=== PATIENT | female | born 1955 | race Caucasian/White ===

== ENCOUNTER 2017-10-27 10:18 | Emergency (ER) | payer MEDICARE, OTHER ==
[2017-10-27] MEDS: IPRATROPIUM (NEB) 0.5 MG/2.5 ML AMP HHN (11:03)
[2017-10-27] MEDS: ALBUTEROL 0.083% (NEB) 2.5 MG/3 ML AMP HHN (11:03)
== END 2017-10-27 11:59 | disposition home or self-care (01) ==
LOC: FTE 10:18
DX: R05 Cough (principal); I10 Essential (primary) hypertension; Z79.4 Long term (current) use of insulin; Z79.82 Long term (current) use of aspirin
CPT/HCPCS: 71045; 94664; 99284-25

== ENCOUNTER 2017-11-05 09:40 | Inpatient (IN) | payer MEDICARE, OTHER ==
[2017-11-05 10:39] LABS: ADD UMIC YES; UR ASCORBIC ACID NEGATIVE (NEGATIVE); UR BILIRUBIN (Dip) NEGATIVE (NEGATIVE); UR BLOOD (Dip) NEGATIVE (NEGATIVE); UR CLARITY SLIGHTLY CLOUDY (CLEAR); UR COLOR YELLOW (YELLOW); UR GLUCOSE (Dip) NEGATIVE (NEGATIVE); UR KETONES (Dip) NEGATIVE (NEGATIVE); UR LEUKOCYTE ESTERASE (Dip) 2+ Leu/ul (NEGATIVE); UR MUCUS FEW /HPF (NONE SEEN); UR NITRITE (Dip) NEGATIVE (NEGATIVE); UR RBC 1 /HPF (0-5); UR SPECIFIC GRAVITY (Dip) 1.014 (1.003-1.030); UR SQUAMOUS EPITHELIAL CELL FEW /HPF (FEW); UR TOTAL PROTEIN (Dip) NEGATIVE (NEGATIVE); UR UROBILINOGEN (Dip) NEGATIVE (NEGATIVE); UR WBC 20 /HPF (0-5)
[2017-11-05 10:54] LABS: ADD MAN DIFF? NO
[2017-11-05 11:03] LABS: BASOPHIL # 0.1 10^3/ul (0.0-0.1); BASOPHILS % 0.6 % (0.0-2.0); EOSINOPHILS # 0.3 10^3/ul (0.0-0.5); EOSINOPHILS % 2.9 % (0.0-7.0); HEMOGLOBIN 11.6 g/dl (12.0-16.0); LYMPHOCYTES # 1.8 10^3/ul (0.8-2.9); LYMPHOCYTES % 16.3 % (15.0-51.0); MEAN CORPUSCULAR HEMOGLOBIN 27.6 pg (29.0-33.0); MEAN CORPUSCULAR HGB CONC 30.5 g/dl (32.0-37.0); MEAN CORPUSCULAR VOLUME 90.3 fl (82.0-101.0); MEAN PLATELET VOLUME 10.5 fl (7.4-10.4); MONOCYTE # 0.7 10^3/ul (0.3-0.9); MONOCYTES % 6.9 % (0.0-11.0); NEUTROPHIL # 7.8 10^3/ul (1.6-7.5); NEUTROPHILS % 72.6 % (39.0-77.0); PLATELET COUNT 277 10^3/UL (140-415); RED BLOOD COUNT 4.21 10^6/ul (4.20-5.40); RED CELL DISTRIBUTION WIDTH 13.4 % (11.5-14.5)
[2017-11-05 11:03] LABS: WHITE BLOOD COUNT 10.7 10^3/ul (4.8-10.8)
[2017-11-05] MEDS: CEFEPIME 2GM/50 ML (PMX) 50 ML IVPB (11:05)
[2017-11-05 11:15] LABS: ALANINE AMINOTRANSFERASE 22 IU/L (13-69); ALBUMIN 3.8 g/dl (3.3-4.9); ALBUMIN/GLOBULIN RATIO 1.18; ALKALINE PHOSPHATASE 101 IU/L (42-121); ANION GAP 16 (8-16); ASPARTATE AMINO TRANSFERASE 20 IU/L (15-46); BILIRUBIN,INDIRECT 0.8 mg/dl (0-1.1); BILIRUBIN,TOTAL 0.8 mg/dl (0.2-1.3); BLOOD UREA NITROGEN 23 mg/dl (7-20); CALCIUM 9.1 mg/dl (8.4-10.2); CARBON DIOXIDE 28 mmol/L (21-31); CHLORIDE 107 mmol/L (97-110); CREATININE 1.05 mg/dl (0.44-1.00); GLUCOSE 107 mg/dl (70-220); POTASSIUM 4.4 mmol/L (3.5-5.1); SODIUM 147 mmol/L (135-144)
[2017-11-05 11:18] LABS: INR 0.97
[2017-11-05 11:25] LABS: LACTIC ACID 1.5 mmol/L (0.5-2.0)
[2017-11-05 11:30] LABS: TROPONIN-I < 0.012 ng/ml (0.00-0.12)
[2017-11-05] MEDS ORDERED: ONDANSETRON 4 MG INJ IV (12:00)
[2017-11-05] MEDS ORDERED: ACETAMINOPHEN 325 MG TAB PO (12:00)
[2017-11-05 16:30] LABS: HEMOGLOBIN A1C 7.3 % (0-5.9)
[2017-11-05] MEDS ORDERED: GLUCOSE GEL 15 GRAM TUBE BUCCAL (16:30)
[2017-11-05] MEDS ORDERED: DEXTROSE 50% 50 ML SYRINGE IV ×2 (16:30)
[2017-11-05] MEDS ORDERED: GLUCOSE GEL 15 GRAM TUBE PO ×2 (16:30)
[2017-11-05] MEDS ORDERED: GLUCAGON 1 MG INJ IM (16:30)
[2017-11-05] MEDS: ALBUTEROL HFA 8 GM INHALER INH ×2 (17:00→20:49)
[2017-11-05] MEDS: SOD CHLORIDE 0.45% 1,000 ML IV (17:06)
[2017-11-05] MEDS: PANTOPRAZOLE (EC) 40 MG TAB PO (17:44)
[2017-11-05] MEDS: INSULIN ASPART [NOVOLOG] 3 ML PEN SC ×3 (17:51→20:57)
[2017-11-05] MEDS: CEFEPIME 1GM/50 ML (PMX) 50 ML IVPB (20:45)
[2017-11-05] MEDS: MYCOPHENOLATE (SR) 180 MG TAB PO (20:46)
[2017-11-05] MEDS: TACROLIMUS 1 MG CAP PO (20:46)
[2017-11-05] MEDS: VALSARTAN 80 MG TAB PO (20:46)
[2017-11-05] MEDS: GABAPENTIN 300 MG CAP PO (20:46)
[2017-11-05] MEDS: ATORVASTATIN 10 MG TAB PO (20:46)
[2017-11-05] MEDS ORDERED: NON-FORMULARY/PATIENT OWN MED (Simvastatin* (Zocor*) 10 MG) PO (21:00)
[2017-11-05] MEDS: INSULIN GLARGINE [LANtus] 3 ML PEN SC (21:03)
[2017-11-06] MEDS: ALBUTEROL HFA 8 GM INHALER INH ×6 (01:00→21:12)
[2017-11-06] MEDS: ACCU-CHEK XX (01:21)
[2017-11-06 05:12] LABS: ADD MAN DIFF? NO
[2017-11-06 05:14] LABS: WHITE BLOOD COUNT 9.4 10^3/ul (4.8-10.8)
[2017-11-06 05:14] LABS: BASOPHIL # 0.1 10^3/ul (0.0-0.1); BASOPHILS % 0.7 % (0.0-2.0); EOSINOPHILS # 0.3 10^3/ul (0.0-0.5); EOSINOPHILS % 3.1 % (0.0-7.0); HEMATOCRIT 35.7 % (37.0-47.0); HEMOGLOBIN 10.8 g/dl (12.0-16.0); LYMPHOCYTES # 2.3 10^3/ul (0.8-2.9); LYMPHOCYTES % 24.6 % (15.0-51.0); MEAN CORPUSCULAR HEMOGLOBIN 27.1 pg (29.0-33.0); MEAN CORPUSCULAR HGB CONC 30.3 g/dl (32.0-37.0); MEAN CORPUSCULAR VOLUME 89.5 fl (82.0-101.0); MEAN PLATELET VOLUME 10.9 fl (7.4-10.4); MONOCYTE # 0.8 10^3/ul (0.3-0.9); MONOCYTES % 8.7 % (0.0-11.0); NEUTROPHIL # 5.8 10^3/ul (1.6-7.5); PLATELET COUNT 242 10^3/UL (140-415); RED BLOOD COUNT 3.99 10^6/ul (4.20-5.40); RED CELL DISTRIBUTION WIDTH 13.6 % (11.5-14.5)
[2017-11-06 05:45] LABS: ANION GAP 14 (8-16); BLOOD UREA NITROGEN 26 mg/dl (7-20); CARBON DIOXIDE 30 mmol/L (21-31); CHLORIDE 102 mmol/L (97-110); CREATININE 1.28 mg/dl (0.44-1.00); GLUCOSE 182 mg/dl (70-220); POTASSIUM 3.8 mmol/L (3.5-5.1); SODIUM 142 mmol/L (135-144)
[2017-11-06] MEDS: PANTOPRAZOLE (EC) 40 MG TAB PO ×2 (05:45→17:49)
[2017-11-06] MEDS: INSULIN ASPART [NOVOLOG] 3 ML PEN SC ×7 (07:50→21:00)
[2017-11-06] MEDS: GABAPENTIN 300 MG CAP PO ×2 (08:50→21:00)
[2017-11-06] MEDS: VALSARTAN 80 MG TAB PO ×3 (08:50→21:01)
[2017-11-06] MEDS: DOCUSATE SODIUM 250 MG CAP PO (08:50)
[2017-11-06] MEDS: TACROLIMUS 1 MG CAP PO ×2 (08:50→21:00)
[2017-11-06] MEDS: predniSONE 2.5 MG TAB PO (08:50)
[2017-11-06] MEDS: LINAGLIPTIN 5 MG TABLET PO (08:50)
[2017-11-06] MEDS: MYCOPHENOLATE (SR) 180 MG TAB PO ×2 (08:50→21:00)
[2017-11-06] MEDS: ASPIRIN (EC) 81 MG TAB PO (08:51)
[2017-11-06] MEDS ORDERED: NON-FORMULARY/PATIENT OWN MED (Sitagliptin* (Januvia*) 50 MG) PO (09:00)
[2017-11-06] MEDS: CEFEPIME 1GM/50 ML (PMX) 50 ML IVPB ×2 (09:00→21:00)
[2017-11-06] MEDS ORDERED: predniSONE 20 MG TAB PO (09:00)
[2017-11-06] MEDS: SOD CHLORIDE 0.45% 1,000 ML IV (14:20)
[2017-11-06] MEDS: ATORVASTATIN 10 MG TAB PO (21:01)
[2017-11-06] MEDS: INSULIN GLARGINE [LANtus] 3 ML PEN SC (21:12)
[2017-11-07] MEDS: ALBUTEROL HFA 8 GM INHALER INH ×6 (01:00→21:39)
[2017-11-07] MEDS: ACCU-CHEK XX (02:00)
[2017-11-07] MEDS: PANTOPRAZOLE (EC) 40 MG TAB PO ×2 (05:32→17:39)
[2017-11-07] MEDS: TACROLIMUS 1 MG CAP PO ×2 (08:59→20:34)
[2017-11-07] MEDS: MYCOPHENOLATE (SR) 180 MG TAB PO ×2 (08:59→20:34)
[2017-11-07] MEDS: ASPIRIN (EC) 81 MG TAB PO (09:00)
[2017-11-07] MEDS: VALSARTAN 80 MG TAB PO ×2 (09:00→20:44)
[2017-11-07] MEDS: LINAGLIPTIN 5 MG TABLET PO (09:00)
[2017-11-07] MEDS: GABAPENTIN 300 MG CAP PO ×2 (09:00→20:33)
[2017-11-07] MEDS: SOD CHLORIDE 0.45% 1,000 ML IV (09:00)
[2017-11-07] MEDS: DOCUSATE SODIUM 250 MG CAP PO (09:00)
[2017-11-07] MEDS: predniSONE 2.5 MG TAB PO (09:00)
[2017-11-07] MEDS: CEFEPIME 1GM/50 ML (PMX) 50 ML IVPB (09:01)
[2017-11-07] MEDS: INSULIN ASPART [NOVOLOG] 3 ML PEN SC ×7 (09:11→21:00)
[2017-11-07] MEDS: INSULIN GLARGINE [LANtus] 3 ML PEN SC (20:31)
[2017-11-07] MEDS: ATORVASTATIN 10 MG TAB PO (20:33)
[2017-11-07] MEDS: AMOXICILLIN/CLAV 500 MG TAB PO (20:34)
[2017-11-07] MEDS: ONDANSETRON 4 MG INJ IV (20:46)
[2017-11-08] MEDS: ALBUTEROL HFA 8 GM INHALER INH ×6 (00:50→23:26)
[2017-11-08] MEDS: ACCU-CHEK XX (02:00)
[2017-11-08] MEDS: SOD CHLORIDE 0.45% 1,000 ML IV ×2 (05:00→07:10)
[2017-11-08 05:13] LABS: ADD MAN DIFF? NO
[2017-11-08 05:23] LABS: BASOPHIL # 0.1 10^3/ul (0.0-0.1); BASOPHILS % 0.8 % (0.0-2.0); EOSINOPHILS # 0.3 10^3/ul (0.0-0.5); EOSINOPHILS % 4.1 % (0.0-7.0); HEMATOCRIT 36.1 % (37.0-47.0); LYMPHOCYTES # 2.2 10^3/ul (0.8-2.9); LYMPHOCYTES % 27.9 % (15.0-51.0); MEAN CORPUSCULAR HEMOGLOBIN 27.5 pg (29.0-33.0); MEAN CORPUSCULAR HGB CONC 30.5 g/dl (32.0-37.0); MEAN CORPUSCULAR VOLUME 90.3 fl (82.0-101.0); MEAN PLATELET VOLUME 11.1 fl (7.4-10.4); MONOCYTE # 0.7 10^3/ul (0.3-0.9); MONOCYTES % 8.6 % (0.0-11.0); NEUTROPHIL # 4.5 10^3/ul (1.6-7.5); PLATELET COUNT 215 10^3/UL (140-415); RED CELL DISTRIBUTION WIDTH 13.3 % (11.5-14.5)
[2017-11-08 05:23] LABS: WHITE BLOOD COUNT 7.8 10^3/ul (4.8-10.8)
[2017-11-08] MEDS: PANTOPRAZOLE (EC) 40 MG TAB PO ×2 (05:43→17:34)
[2017-11-08 06:57] LABS: ANION GAP 13 (8-16); BLOOD UREA NITROGEN 22 mg/dl (7-20); CALCIUM 9.2 mg/dl (8.4-10.2); CARBON DIOXIDE 28 mmol/L (21-31); CHLORIDE 105 mmol/L (97-110); CREATININE 1.11 mg/dl (0.44-1.00); GLUCOSE 167 mg/dl (70-220); POTASSIUM 4.2 mmol/L (3.5-5.1); SODIUM 142 mmol/L (135-144)
[2017-11-08] MEDS: predniSONE 2.5 MG TAB PO (08:44)
[2017-11-08] MEDS: DOCUSATE SODIUM 250 MG CAP PO (08:44)
[2017-11-08] MEDS: AMOXICILLIN/CLAV 500 MG TAB PO ×2 (08:44→20:36)
[2017-11-08] MEDS: TACROLIMUS 1 MG CAP PO ×2 (08:44→20:36)
[2017-11-08] MEDS: MYCOPHENOLATE (SR) 180 MG TAB PO ×2 (08:44→20:36)
[2017-11-08] MEDS: LINAGLIPTIN 5 MG TABLET PO (08:44)
[2017-11-08] MEDS: VALSARTAN 80 MG TAB PO ×2 (08:44→20:39)
[2017-11-08] MEDS: GABAPENTIN 300 MG CAP PO ×2 (08:44→20:39)
[2017-11-08] MEDS: ASPIRIN (EC) 81 MG TAB PO (08:44)
[2017-11-08] MEDS: INSULIN ASPART [NOVOLOG] 3 ML PEN SC ×7 (08:47→20:53)
[2017-11-08] MEDS: ATORVASTATIN 10 MG TAB PO (20:39)
[2017-11-08] MEDS: INSULIN GLARGINE [LANtus] 3 ML PEN SC (20:51)
[2017-11-09] MEDS: ALBUTEROL HFA 8 GM INHALER INH ×6 (01:33→21:54)
[2017-11-09] MEDS: ACCU-CHEK XX (02:20)
[2017-11-09] MEDS: PANTOPRAZOLE (EC) 40 MG TAB PO ×2 (06:04→17:47)
[2017-11-09] MEDS: predniSONE 2.5 MG TAB PO (08:43)
[2017-11-09] MEDS: VALSARTAN 80 MG TAB PO ×2 (08:43→21:51)
[2017-11-09] MEDS: GABAPENTIN 300 MG CAP PO ×2 (08:43→21:53)
[2017-11-09] MEDS: ASPIRIN (EC) 81 MG TAB PO (08:43)
[2017-11-09] MEDS: LINAGLIPTIN 5 MG TABLET PO (08:43)
[2017-11-09] MEDS: AMOXICILLIN/CLAV 500 MG TAB PO ×2 (08:44→21:53)
[2017-11-09] MEDS: DOCUSATE SODIUM 250 MG CAP PO (08:44)
[2017-11-09] MEDS: MYCOPHENOLATE (SR) 180 MG TAB PO ×2 (08:44→21:53)
[2017-11-09] MEDS: TACROLIMUS 1 MG CAP PO ×2 (08:45→21:53)
[2017-11-09] MEDS: INSULIN ASPART [NOVOLOG] 3 ML PEN SC ×7 (08:48→21:00)
[2017-11-09] MEDS: ATORVASTATIN 10 MG TAB PO (21:53)
[2017-11-09] MEDS: INSULIN GLARGINE [LANtus] 3 ML PEN SC (21:56)
[2017-11-10] MEDS: ALBUTEROL HFA 8 GM INHALER INH ×3 (02:14→20:42)
[2017-11-10] MEDS: ACCU-CHEK XX (02:16)
[2017-11-10 05:11] LABS: ADD MAN DIFF? NO
[2017-11-10 05:13] LABS: WHITE BLOOD COUNT 8.8 10^3/ul (4.8-10.8)
[2017-11-10 05:13] LABS: BASOPHIL # 0.1 10^3/ul (0.0-0.1); BASOPHILS % 0.8 % (0.0-2.0); EOSINOPHILS # 0.3 10^3/ul (0.0-0.5); EOSINOPHILS % 3.4 % (0.0-7.0); HEMATOCRIT 31.9 % (37.0-47.0); HEMOGLOBIN 9.7 g/dl (12.0-16.0); LYMPHOCYTES # 2.5 10^3/ul (0.8-2.9); LYMPHOCYTES % 27.7 % (15.0-51.0); MEAN CORPUSCULAR HEMOGLOBIN 27.9 pg (29.0-33.0); MEAN CORPUSCULAR HGB CONC 30.4 g/dl (32.0-37.0); MEAN CORPUSCULAR VOLUME 91.7 fl (82.0-101.0); MEAN PLATELET VOLUME 11.6 fl (7.4-10.4); MONOCYTE # 0.8 10^3/ul (0.3-0.9); MONOCYTES % 8.6 % (0.0-11.0); NEUTROPHIL # 5.2 10^3/ul (1.6-7.5); NEUTROPHILS % 58.9 % (39.0-77.0); PLATELET COUNT 177 10^3/UL (140-415); RED BLOOD COUNT 3.48 10^6/ul (4.20-5.40); RED CELL DISTRIBUTION WIDTH 13.7 % (11.5-14.5)
[2017-11-10 05:44] LABS: ANION GAP 13 (8-16); BLOOD UREA NITROGEN 23 mg/dl (7-20); CALCIUM 9.1 mg/dl (8.4-10.2); CARBON DIOXIDE 28 mmol/L (21-31); CHLORIDE 105 mmol/L (97-110); CREATININE 1.24 mg/dl (0.44-1.00); GLUCOSE 200 mg/dl (70-220); POTASSIUM 4.7 mmol/L (3.5-5.1); SODIUM 141 mmol/L (135-144)
[2017-11-10] MEDS: PANTOPRAZOLE (EC) 40 MG TAB PO ×2 (06:18→17:47)
[2017-11-10] MEDS: GABAPENTIN 300 MG CAP PO ×2 (09:54→20:51)
[2017-11-10] MEDS: LINAGLIPTIN 5 MG TABLET PO (09:55)
[2017-11-10] MEDS: ASPIRIN (EC) 81 MG TAB PO (09:55)
[2017-11-10] MEDS: AMOXICILLIN/CLAV 500 MG TAB PO ×2 (09:55→21:00)
[2017-11-10] MEDS: DOCUSATE SODIUM 250 MG CAP PO (09:55)
[2017-11-10] MEDS: predniSONE 2.5 MG TAB PO (09:55)
[2017-11-10] MEDS: MYCOPHENOLATE (SR) 180 MG TAB PO ×2 (09:55→20:51)
[2017-11-10] MEDS: TACROLIMUS 1 MG CAP PO ×2 (09:55→20:52)
[2017-11-10] MEDS: INSULIN ASPART [NOVOLOG] 3 ML PEN SC ×7 (10:00→20:52)
[2017-11-10] MEDS: SOD CHLORIDE 0.45% 1,000 ML IV (16:10)
[2017-11-10] MEDS: ACETAMINOPHEN 325 MG TAB PO (17:47)
[2017-11-10] MEDS: VALSARTAN 80 MG TAB PO (20:51)
[2017-11-10] MEDS: ATORVASTATIN 10 MG TAB PO (20:51)
[2017-11-10] MEDS: INSULIN GLARGINE [LANtus] 3 ML PEN SC (20:57)
[2017-11-11] MEDS: ALBUTEROL HFA 8 GM INHALER INH ×6 (00:08→20:15)
[2017-11-11] MEDS: ACCU-CHEK XX (02:38)
[2017-11-11] MEDS: PANTOPRAZOLE (EC) 40 MG TAB PO ×2 (05:14→18:06)
[2017-11-11 05:44] LABS: ANION GAP 13 (8-16); BLOOD UREA NITROGEN 23 mg/dl (7-20); CALCIUM 8.8 mg/dl (8.4-10.2); CARBON DIOXIDE 26 mmol/L (21-31); CHLORIDE 104 mmol/L (97-110); CREATININE 1.12 mg/dl (0.44-1.00); GLUCOSE 134 mg/dl (70-220); POTASSIUM 4.7 mmol/L (3.5-5.1); SODIUM 138 mmol/L (135-144)
[2017-11-11] MEDS: TACROLIMUS 1 MG CAP PO ×2 (09:10→21:39)
[2017-11-11] MEDS: AMOXICILLIN/CLAV 500 MG TAB PO (09:10)
[2017-11-11] MEDS: DOCUSATE SODIUM 250 MG CAP PO (09:10)
[2017-11-11] MEDS: ASPIRIN (EC) 81 MG TAB PO (09:10)
[2017-11-11] MEDS: predniSONE 2.5 MG TAB PO (09:11)
[2017-11-11] MEDS: MYCOPHENOLATE (SR) 180 MG TAB PO ×2 (09:11→21:39)
[2017-11-11] MEDS: GABAPENTIN 300 MG CAP PO ×2 (09:11→20:16)
[2017-11-11] MEDS: LINAGLIPTIN 5 MG TABLET PO (09:11)
[2017-11-11] MEDS: VALSARTAN 80 MG TAB PO ×2 (09:12→20:20)
[2017-11-11] MEDS: INSULIN ASPART [NOVOLOG] 3 ML PEN SC ×7 (09:14→20:20)
[2017-11-11] MEDS: SOD CHLORIDE 0.45% 1,000 ML IV (09:17)
[2017-11-11] MEDS: ATORVASTATIN 10 MG TAB PO (20:20)
[2017-11-11] MEDS: INSULIN GLARGINE [LANtus] 3 ML PEN SC (20:59)
[2017-11-12] MEDS: ALBUTEROL HFA 8 GM INHALER INH ×5 (01:00→17:36)
[2017-11-12] MEDS: SOD CHLORIDE 0.45% 1,000 ML IV (01:20)
[2017-11-12] MEDS: ACCU-CHEK XX (02:19)
[2017-11-12] MEDS: PANTOPRAZOLE (EC) 40 MG TAB PO ×2 (06:30→17:35)
[2017-11-12] MEDS: VALSARTAN 80 MG TAB PO (08:42)
[2017-11-12] MEDS: DOCUSATE SODIUM 250 MG CAP PO (08:42)
[2017-11-12] MEDS: GABAPENTIN 300 MG CAP PO (08:42)
[2017-11-12] MEDS: LINAGLIPTIN 5 MG TABLET PO (08:42)
[2017-11-12] MEDS: ASPIRIN (EC) 81 MG TAB PO (08:42)
[2017-11-12] MEDS: MYCOPHENOLATE (SR) 180 MG TAB PO (08:42)
[2017-11-12] MEDS: TACROLIMUS 1 MG CAP PO (08:42)
[2017-11-12] MEDS: INSULIN ASPART [NOVOLOG] 3 ML PEN SC ×6 (08:46→18:01)
[2017-11-12] MEDS: predniSONE 2.5 MG TAB PO (09:12)
== END 2017-11-12 19:13 | disposition home or self-care (01) | DRG 690 ==
LOC: E/R 09:40 → MS1 11:43
DX: N30.00 Acute cystitis without hematuria (principal); N17.9 Acute kidney failure, unspecified; Z94.0 Kidney transplant status; E11.9 Type 2 diabetes mellitus without complications; I10 Essential (primary) hypertension; E66.9 Obesity, unspecified; Z68.37 Body mass index [BMI] 37.0-37.9, adult; Z79.899 Other long term (current) drug therapy; E78.5 Hyperlipidemia, unspecified
CPT/HCPCS: 36415; 71045; 76775; 80048; 80053; 81001; 82962; 83036; 83605; 84484; 85025; 85610; 85730; 87040; 87086; 93005; 96374; 99285-25

== ENCOUNTER 2017-12-22 02:04 | Emergency (ER) | payer MEDICARE, OTHER ==
[2017-12-22 03:42] LABS: ADD MAN DIFF? NO
[2017-12-22] MEDS: morphine 4 MG/ML VIAL IV (03:52)
[2017-12-22] MEDS: ONDANSETRON 4 MG INJ IV (03:52)
[2017-12-22 04:09] LABS: WHITE BLOOD COUNT 10.3 10^3/ul (4.8-10.8)
[2017-12-22 04:09] LABS: BASOPHIL # 0.1 10^3/ul (0.0-0.1); BASOPHILS % 0.6 % (0.0-2.0); EOSINOPHILS # 0.2 10^3/ul (0.0-0.5); EOSINOPHILS % 1.8 % (0.0-7.0); HEMATOCRIT 34.1 % (37.0-47.0); HEMOGLOBIN 10.3 g/dl (12.0-16.0); LYMPHOCYTES # 1.9 10^3/ul (0.8-2.9); LYMPHOCYTES % 18.4 % (15.0-51.0); MEAN CORPUSCULAR HEMOGLOBIN 27.2 pg (29.0-33.0); MEAN CORPUSCULAR HGB CONC 30.2 g/dl (32.0-37.0); MEAN CORPUSCULAR VOLUME 90.2 fl (82.0-101.0); MONOCYTE # 0.8 10^3/ul (0.3-0.9); MONOCYTES % 7.7 % (0.0-11.0); NEUTROPHIL # 7.3 10^3/ul (1.6-7.5); NEUTROPHILS % 70.9 % (39.0-77.0); PLATELET COUNT 233 10^3/UL (140-415); RED BLOOD COUNT 3.78 10^6/ul (4.20-5.40)
[2017-12-22 04:10] LABS: ALANINE AMINOTRANSFERASE 21 IU/L (13-69); ALBUMIN 3.6 g/dl (3.3-4.9); ALBUMIN/GLOBULIN RATIO 1.12; ALKALINE PHOSPHATASE 108 IU/L (42-121); ANION GAP 15 (8-16); ASPARTATE AMINO TRANSFERASE 17 IU/L (15-46); BILIRUBIN,INDIRECT 0.7 mg/dl (0-1.1); BILIRUBIN,TOTAL 0.7 mg/dl (0.2-1.3); BLOOD UREA NITROGEN 37 mg/dl (7-20); CALCIUM 9.1 mg/dl (8.4-10.2); CARBON DIOXIDE 24 mmol/L (21-31); CHLORIDE 110 mmol/L (97-110); CREATININE 1.07 mg/dl (0.44-1.00); GLUCOSE 108 mg/dl (70-220); LIPASE 57 U/L (23-300); POTASSIUM 4.5 mmol/L (3.5-5.1); SODIUM 144 mmol/L (135-144); TOTAL PROTEIN 6.8 g/dl (6.1-8.1)
[2017-12-22 04:23] LABS: ADD UMIC YES; UR ASCORBIC ACID NEGATIVE (NEGATIVE); UR BACTERIA FEW /HPF (NONE SEEN); UR BILIRUBIN (Dip) NEGATIVE (NEGATIVE); UR BLOOD (Dip) NEGATIVE (NEGATIVE); UR CLARITY CLEAR (CLEAR); UR COLOR STRAW (YELLOW); UR GLUCOSE (Dip) NEGATIVE (NEGATIVE); UR KETONES (Dip) NEGATIVE (NEGATIVE); UR LEUKOCYTE ESTERASE (Dip) TRACE Leu/ul (NEGATIVE); UR NITRITE (Dip) NEGATIVE (NEGATIVE); UR RBC 1 /HPF (0-5); UR SPECIFIC GRAVITY (Dip) 1.011 (1.003-1.030); UR TOTAL PROTEIN (Dip) NEGATIVE (NEGATIVE); UR UROBILINOGEN (Dip) NEGATIVE (NEGATIVE); UR WBC 25 /HPF (0-5)
[2017-12-22] MEDS: SOD CHLORIDE 0.9% 500 ML IV (04:25)
[2017-12-22] MEDS: hydrALAzine 20 MG INJ IV (04:29)
== END 2017-12-22 07:20 | disposition home or self-care (01) ==
LOC: E/R 02:04
DX: N39.0 Urinary tract infection, site not specified (principal); I10 Essential (primary) hypertension; E11.9 Type 2 diabetes mellitus without complications; Z79.4 Long term (current) use of insulin; Z79.82 Long term (current) use of aspirin
CPT/HCPCS: 36415; 74176; 80053; 81001; 83690; 85025; 87086; 96374; 96375; 99285-25

== ENCOUNTER 2018-04-29 02:58 | Inpatient (IN) | payer MEDICARE, OTHER ==
[2018-04-29 03:45] LABS: ADD MAN DIFF? NO
[2018-04-29 04:06] LABS: INR 0.87; PROTIME 11.9 Sec (11.9-14.9); PT RATIO 0.9
[2018-04-29 04:07] LABS: PARTIAL THROMBOPLASTIN TIME 25.4 Sec (23.0-35.0)
[2018-04-29 04:07] LABS: LACTIC ACID 1.9 mmol/L (0.5-2.0)
[2018-04-29 04:08] LABS: ALANINE AMINOTRANSFERASE 43 IU/L (13-69); ALBUMIN 3.9 g/dl (3.3-4.9); ALKALINE PHOSPHATASE 120 IU/L (42-121); ANION GAP 10 (8-16); ASPARTATE AMINO TRANSFERASE 48 IU/L (15-46); BLOOD UREA NITROGEN 25 mg/dl (7-20); CALCIUM 9.2 mg/dl (8.4-10.2); CARBON DIOXIDE 29 mmol/L (21-31); CHLORIDE 106 mmol/L (97-110); GLUCOSE 163 mg/dl (70-220); POTASSIUM 4.6 mmol/L (3.5-5.1); SODIUM 140 mmol/L (135-144); TOTAL PROTEIN 6.9 g/dl (6.1-8.1); URINE BLOOD (Dip) POC 2+ (NEGATIVE); URINE GLUCOSE (Dip) POC Negative (NEGATIVE); URINE KETONES (Dip) POC Negative (NEGATIVE); URINE LEUKOCYTE EST (Dip) POC 2+ (NEGATIVE); URINE NITRITE (Dip) POC Positive (NEGATIVE); URINE TOTAL PROTEIN POC 3+ (NEGATIVE)
[2018-04-29 04:19] LABS: WHITE BLOOD COUNT 11.8 10^3/ul (4.8-10.8)
[2018-04-29 04:19] LABS: BASOPHIL # 0.1 10^3/ul (0.0-0.1); BASOPHILS % 0.4 % (0.0-2.0); EOSINOPHILS # 0.1 10^3/ul (0.0-0.5); EOSINOPHILS % 0.6 % (0.0-7.0); HEMATOCRIT 37.9 % (37.0-47.0); HEMOGLOBIN 11.2 g/dl (12.0-16.0); LYMPHOCYTES # 0.7 10^3/ul (0.8-2.9); LYMPHOCYTES % 6.3 % (15.0-51.0); MEAN CORPUSCULAR HEMOGLOBIN 27.5 pg (29.0-33.0); MEAN CORPUSCULAR HGB CONC 29.6 g/dl (32.0-37.0); MEAN CORPUSCULAR VOLUME 93.1 fl (82.0-101.0); MEAN PLATELET VOLUME 10.5 fl (7.4-10.4); MONOCYTE # 0.9 10^3/ul (0.3-0.9); MONOCYTES % 7.5 % (0.0-11.0); NEUTROPHIL # 9.9 10^3/ul (1.6-7.5); NEUTROPHILS % 84.5 % (39.0-77.0); PLATELET COUNT 220 10^3/UL (140-415); RED BLOOD COUNT 4.07 10^6/ul (4.20-5.40); RED CELL DISTRIBUTION WIDTH 13.4 % (11.5-14.5); TROPONIN-I 0.015 ng/ml (0.000-0.120)
[2018-04-29 04:24] LABS: ADD UMIC YES; UR ASCORBIC ACID NEGATIVE (NEGATIVE); UR BACTERIA FEW /HPF (NONE SEEN); UR BILIRUBIN (Dip) NEGATIVE (NEGATIVE); UR BLOOD (Dip) 1+ mg/dL (NEGATIVE); UR CLARITY CLOUDY (CLEAR); UR COLOR YELLOW (YELLOW); UR GLUCOSE (Dip) NEGATIVE (NEGATIVE); UR KETONES (Dip) NEGATIVE (NEGATIVE); UR LEUKOCYTE ESTERASE (Dip) 2+ Leu/ul (NEGATIVE); UR NITRITE (Dip) POSITIVE (NEGATIVE); UR RBC 34 /HPF (0-5); UR TOTAL PROTEIN (Dip) 2+ mg/dl (NEGATIVE); UR UROBILINOGEN (Dip) NEGATIVE (NEGATIVE); UR WBC > 182 /HPF (0-5)
[2018-04-29] MEDS: PIPER-TAZO 3.375 GM IV (PMX) 100 ML IVPB (05:04)
[2018-04-29] MEDS: ACETAMINOPHEN 325 MG TAB PO ×2 (05:05→07:47)
[2018-04-29] MEDS ORDERED: ONDANSETRON 4 MG INJ IV (06:30)
[2018-04-29] MEDS ORDERED: morphine 2 MG INJ IV (06:30)
[2018-04-29 07:29] LABS: LACTIC ACID 2.5 mmol/L (0.5-2.0)
[2018-04-29] MEDS: CEFTRIAXONE 1 GM/50 ML (PMX) 50 ML IVPB (07:47)
[2018-04-29 09:23] LABS: LACTIC ACID 1.9 mmol/L (0.5-2.0)
[2018-04-29] MEDS: SOD CHLORIDE 0.9% 1,000 ML IV ×3 (09:45→20:42)
[2018-04-29] MEDS: PANTOPRAZOLE (EC) 40 MG TAB PO ×2 (09:47→20:19)
[2018-04-29] MEDS: MYCOPHENOLATE (SR) 180 MG TAB PO ×2 (09:49→20:19)
[2018-04-29] MEDS: ASPIRIN (EC) 81 MG TAB PO (09:49)
[2018-04-29] MEDS: DOCUSATE SODIUM 250 MG CAP PO (09:50)
[2018-04-29] MEDS: predniSONE 20 MG TAB PO (09:50)
[2018-04-29] MEDS: GABAPENTIN 300 MG CAP PO ×2 (09:51→20:19)
[2018-04-29] MEDS: TACROLIMUS 1 MG CAP PO ×2 (09:51→20:19)
[2018-04-29] MEDS: LINAGLIPTIN 5 MG TABLET PO (09:51)
[2018-04-29] MEDS: LOSARTAN 50 MG TAB PO (09:54)
[2018-04-29] MEDS: INSULIN ASPART [NOVOLOG] 3 ML PEN SC ×5 (12:43→20:51)
[2018-04-29] MEDS: ATORVASTATIN 10 MG TAB PO (20:19)
[2018-04-29] MEDS: INSULIN GLARGINE [LANTus] (100 UNITS/ML) SYG SC (20:26)
[2018-04-30] MEDS: CEFTRIAXONE 1 GM/50 ML (PMX) 50 ML IVPB ×2 (05:25→20:18)
[2018-04-30] MEDS: SOD CHLORIDE 0.9% 1,000 ML IV ×2 (05:25→17:15)
[2018-04-30 07:28] LABS: ADD MAN DIFF? NO
[2018-04-30 07:30] LABS: WHITE BLOOD COUNT 16.8 10^3/ul (4.8-10.8)
[2018-04-30 07:30] LABS: BASOPHILS % 0.2 % (0.0-2.0); EOSINOPHILS % 0.1 % (0.0-7.0); HEMATOCRIT 33.3 % (37.0-47.0); HEMOGLOBIN 9.9 g/dl (12.0-16.0); LYMPHOCYTES # 1.5 10^3/ul (0.8-2.9); LYMPHOCYTES % 8.8 % (15.0-51.0); MEAN CORPUSCULAR HEMOGLOBIN 27.6 pg (29.0-33.0); MEAN CORPUSCULAR HGB CONC 29.7 g/dl (32.0-37.0); MEAN CORPUSCULAR VOLUME 92.8 fl (82.0-101.0); MEAN PLATELET VOLUME 10.5 fl (7.4-10.4); MONOCYTE # 1.2 10^3/ul (0.3-0.9); MONOCYTES % 6.8 % (0.0-11.0); NEUTROPHILS % 83.4 % (39.0-77.0); PLATELET COUNT 195 10^3/UL (140-415); RED BLOOD COUNT 3.59 10^6/ul (4.20-5.40); RED CELL DISTRIBUTION WIDTH 13.4 % (11.5-14.5)
[2018-04-30] MEDS: INSULIN ASPART [NOVOLOG] 3 ML PEN SC ×7 (07:45→20:22)
[2018-04-30 07:53] LABS: ANION GAP 13 (8-16); BLOOD UREA NITROGEN 28 mg/dl (7-20); CALCIUM 9.2 mg/dl (8.4-10.2); CARBON DIOXIDE 26 mmol/L (21-31); CHLORIDE 107 mmol/L (97-110); CREATININE 1.32 mg/dl (0.44-1.00); GLUCOSE 239 mg/dl (70-220); POTASSIUM 4.8 mmol/L (3.5-5.1); SODIUM 141 mmol/L (135-144)
[2018-04-30] MEDS: PANTOPRAZOLE (EC) 40 MG TAB PO ×2 (09:12→20:17)
[2018-04-30] MEDS: LINAGLIPTIN 5 MG TABLET PO (09:12)
[2018-04-30] MEDS: MYCOPHENOLATE (SR) 180 MG TAB PO ×2 (09:12→20:17)
[2018-04-30] MEDS: predniSONE 5 MG TAB PO (09:12)
[2018-04-30] MEDS: TACROLIMUS 1 MG CAP PO ×2 (09:12→20:17)
[2018-04-30] MEDS: ASPIRIN (EC) 81 MG TAB PO (09:12)
[2018-04-30] MEDS: GABAPENTIN 300 MG CAP PO ×2 (09:12→20:17)
[2018-04-30] MEDS: LOSARTAN 50 MG TAB PO (09:12)
[2018-04-30] MEDS: DOCUSATE SODIUM 250 MG CAP PO (09:12)
[2018-04-30] MEDS: ATORVASTATIN 10 MG TAB PO (20:17)
[2018-04-30] MEDS: INSULIN GLARGINE [LANTus] (100 UNITS/ML) SYG SC (20:22)
[2018-05-01] MEDS: SOD CHLORIDE 0.9% 1,000 ML IV (05:23)
[2018-05-01] MEDS: INSULIN ASPART [NOVOLOG] 3 ML PEN SC ×7 (08:07→20:42)
[2018-05-01] MEDS: CEFTRIAXONE 1 GM/50 ML (PMX) 50 ML IVPB (08:18)
[2018-05-01] MEDS: GABAPENTIN 300 MG CAP PO ×2 (08:18→20:22)
[2018-05-01] MEDS: LINAGLIPTIN 5 MG TABLET PO (08:19)
[2018-05-01] MEDS: predniSONE 5 MG TAB PO (08:19)
[2018-05-01] MEDS: ASPIRIN (EC) 81 MG TAB PO (08:19)
[2018-05-01] MEDS: DOCUSATE SODIUM 250 MG CAP PO (08:19)
[2018-05-01] MEDS: MYCOPHENOLATE (SR) 180 MG TAB PO ×2 (08:19→20:23)
[2018-05-01] MEDS: PANTOPRAZOLE (EC) 40 MG TAB PO ×2 (08:19→20:25)
[2018-05-01] MEDS: TACROLIMUS 1 MG CAP PO ×2 (08:19→20:23)
[2018-05-01] MEDS: LOSARTAN 50 MG TAB PO (08:20)
[2018-05-01] MEDS: SENNA TAB PO (08:31)
[2018-05-01] MEDS: DOCUSATE SODIUM 100 MG CAP PO (08:31)
[2018-05-01] MEDS ORDERED: hydrALAzine 20 MG INJ IV (12:30)
[2018-05-01 16:06] LABS: ADD MAN DIFF? NO
[2018-05-01 16:08] LABS: BASOPHIL # 0.1 10^3/ul (0.0-0.1); BASOPHILS % 0.7 % (0.0-2.0); EOSINOPHILS # 0.1 10^3/ul (0.0-0.5); EOSINOPHILS % 1.2 % (0.0-7.0); HEMATOCRIT 34.3 % (37.0-47.0); HEMOGLOBIN 10.1 g/dl (12.0-16.0); LYMPHOCYTES # 1.5 10^3/ul (0.8-2.9); LYMPHOCYTES % 14.4 % (15.0-51.0); MEAN CORPUSCULAR HEMOGLOBIN 27.4 pg (29.0-33.0); MEAN CORPUSCULAR HGB CONC 29.4 g/dl (32.0-37.0); MEAN CORPUSCULAR VOLUME 93.2 fl (82.0-101.0); MEAN PLATELET VOLUME 10.5 fl (7.4-10.4); MONOCYTE # 0.5 10^3/ul (0.3-0.9); MONOCYTES % 5.3 % (0.0-11.0); NEUTROPHIL # 7.8 10^3/ul (1.6-7.5); NEUTROPHILS % 76.8 % (39.0-77.0); PLATELET COUNT 205 10^3/UL (140-415); RED BLOOD COUNT 3.68 10^6/ul (4.20-5.40); RED CELL DISTRIBUTION WIDTH 13.5 % (11.5-14.5)
[2018-05-01 16:08] LABS: WHITE BLOOD COUNT 10.2 10^3/ul (4.8-10.8)
[2018-05-01 16:29] LABS: ANION GAP 11 (8-16); BLOOD UREA NITROGEN 20 mg/dl (7-20); CALCIUM 9.6 mg/dl (8.4-10.2); CARBON DIOXIDE 27 mmol/L (21-31); CHLORIDE 108 mmol/L (97-110); CREATININE 1.04 mg/dl (0.44-1.00); GLUCOSE 116 mg/dl (70-220); POTASSIUM 4.4 mmol/L (3.5-5.1); SODIUM 142 mmol/L (135-144)
[2018-05-01] MEDS: ATORVASTATIN 10 MG TAB PO (20:23)
[2018-05-01] MEDS: MEROPENEM 1 GM/50ML(PMX) 50 ML IVPB (20:24)
[2018-05-01] MEDS: INSULIN GLARGINE [LANTus] (100 UNITS/ML) SYG SC (20:41)
[2018-05-01] MEDS: ACETAMINOPHEN 325 MG TAB PO (23:54)
[2018-05-02 06:38] LABS: ADD MAN DIFF? NO
[2018-05-02 06:40] LABS: BASOPHIL # 0.1 10^3/ul (0.0-0.1); BASOPHILS % 0.9 % (0.0-2.0); EOSINOPHILS # 0.2 10^3/ul (0.0-0.5); EOSINOPHILS % 1.7 % (0.0-7.0); HEMATOCRIT 36.1 % (37.0-47.0); HEMOGLOBIN 10.7 g/dl (12.0-16.0); LYMPHOCYTES # 1.8 10^3/ul (0.8-2.9); LYMPHOCYTES % 20.3 % (15.0-51.0); MEAN CORPUSCULAR HEMOGLOBIN 27.3 pg (29.0-33.0); MEAN CORPUSCULAR HGB CONC 29.6 g/dl (32.0-37.0); MEAN CORPUSCULAR VOLUME 92.1 fl (82.0-101.0); MEAN PLATELET VOLUME 10.6 fl (7.4-10.4); MONOCYTE # 0.7 10^3/ul (0.3-0.9); MONOCYTES % 7.7 % (0.0-11.0); NEUTROPHILS % 67.9 % (39.0-77.0); PLATELET COUNT 224 10^3/UL (140-415); RED BLOOD COUNT 3.92 10^6/ul (4.20-5.40); RED CELL DISTRIBUTION WIDTH 13.5 % (11.5-14.5)
[2018-05-02 06:40] LABS: WHITE BLOOD COUNT 8.8 10^3/ul (4.8-10.8)
[2018-05-02 07:20] LABS: ANION GAP 11 (8-16); BLOOD UREA NITROGEN 22 mg/dl (7-20); CALCIUM 9.5 mg/dl (8.4-10.2); CARBON DIOXIDE 26 mmol/L (21-31); CHLORIDE 108 mmol/L (97-110); CREATININE 1.14 mg/dl (0.44-1.00); GLUCOSE 177 mg/dl (70-220); POTASSIUM 4.2 mmol/L (3.5-5.1); SODIUM 141 mmol/L (135-144)
[2018-05-02] MEDS: INSULIN ASPART [NOVOLOG] 3 ML PEN SC ×7 (08:07→20:57)
[2018-05-02] MEDS: DOCUSATE SODIUM 250 MG CAP PO (08:23)
[2018-05-02] MEDS: LINAGLIPTIN 5 MG TABLET PO (08:23)
[2018-05-02] MEDS: SENNA TAB PO (08:23)
[2018-05-02] MEDS: TACROLIMUS 1 MG CAP PO ×2 (08:24→20:53)
[2018-05-02] MEDS: predniSONE 5 MG TAB PO (08:24)
[2018-05-02] MEDS: MYCOPHENOLATE (SR) 180 MG TAB PO ×2 (08:24→20:53)
[2018-05-02] MEDS: ASPIRIN (EC) 81 MG TAB PO (08:24)
[2018-05-02] MEDS: PANTOPRAZOLE (EC) 40 MG TAB PO ×2 (08:24→20:53)
[2018-05-02] MEDS: DOCUSATE SODIUM 100 MG CAP PO (08:24)
[2018-05-02] MEDS: LOSARTAN 50 MG TAB PO (08:24)
[2018-05-02] MEDS: GABAPENTIN 300 MG CAP PO ×2 (08:24→20:53)
[2018-05-02] MEDS: MEROPENEM 1 GM/50ML(PMX) 50 ML IVPB ×2 (08:25→20:54)
[2018-05-02] MEDS: ATORVASTATIN 10 MG TAB PO (20:54)
[2018-05-02] MEDS: INSULIN GLARGINE [LANTus] (100 UNITS/ML) SYG SC (20:57)
[2018-05-02] MEDS ORDERED: NON-FORMULARY/PATIENT OWN MED (Valsartan* (Diovan*) 80 MG) PO (21:00)
[2018-05-03] MEDS: ACETAMINOPHEN 325 MG TAB PO (01:42)
[2018-05-03 06:08] LABS: ADD MAN DIFF? NO
[2018-05-03 06:14] LABS: BASOPHIL # 0.1 10^3/ul (0.0-0.1); EOSINOPHILS # 0.2 10^3/ul (0.0-0.5); EOSINOPHILS % 2.1 % (0.0-7.0); HEMOGLOBIN 11.1 g/dl (12.0-16.0); LYMPHOCYTES % 25.5 % (15.0-51.0); MEAN CORPUSCULAR HEMOGLOBIN 27.2 pg (29.0-33.0); MEAN CORPUSCULAR VOLUME 90.7 fl (82.0-101.0); MEAN PLATELET VOLUME 10.1 fl (7.4-10.4); MONOCYTE # 0.6 10^3/ul (0.3-0.9); MONOCYTES % 7.5 % (0.0-11.0); NEUTROPHILS % 62.3 % (39.0-77.0); PLATELET COUNT 245 10^3/UL (140-415); RED BLOOD COUNT 4.08 10^6/ul (4.20-5.40); RED CELL DISTRIBUTION WIDTH 13.2 % (11.5-14.5)
[2018-05-03] MEDS: BISACODYL 10 MG SUPP PR (06:15)
[2018-05-03 06:51] LABS: ANION GAP 12 (8-16); BLOOD UREA NITROGEN 26 mg/dl (7-20); CALCIUM 9.6 mg/dl (8.4-10.2); CARBON DIOXIDE 27 mmol/L (21-31); CHLORIDE 108 mmol/L (97-110); CREATININE 1.09 mg/dl (0.44-1.00); GLUCOSE 64 mg/dl (70-220); SODIUM 143 mmol/L (135-144)
[2018-05-03] MEDS: INSULIN ASPART [NOVOLOG] 3 ML PEN SC ×7 (08:28→21:00)
[2018-05-03] MEDS: SENNA TAB PO (09:14)
[2018-05-03] MEDS: MEROPENEM 1 GM/50ML(PMX) 50 ML IVPB ×2 (09:14→22:25)
[2018-05-03] MEDS: predniSONE 5 MG TAB PO (09:15)
[2018-05-03] MEDS: TACROLIMUS 1 MG CAP PO ×2 (09:15→21:37)
[2018-05-03] MEDS: PANTOPRAZOLE (EC) 40 MG TAB PO ×2 (09:15→20:45)
[2018-05-03] MEDS: DOCUSATE SODIUM 250 MG CAP PO (09:15)
[2018-05-03] MEDS: DOCUSATE SODIUM 100 MG CAP PO (09:15)
[2018-05-03] MEDS: MYCOPHENOLATE (SR) 180 MG TAB PO ×2 (09:15→21:37)
[2018-05-03] MEDS: GABAPENTIN 300 MG CAP PO ×2 (09:15→20:48)
[2018-05-03] MEDS: LINAGLIPTIN 5 MG TABLET PO (09:15)
[2018-05-03] MEDS: ASPIRIN (EC) 81 MG TAB PO (09:15)
[2018-05-03] MEDS: LOSARTAN 50 MG TAB PO (09:16)
[2018-05-03] MEDS: ATORVASTATIN 10 MG TAB PO (20:45)
[2018-05-03] MEDS: INSULIN GLARGINE [LANTus] (100 UNITS/ML) SYG SC (21:38)
[2018-05-04 06:55] LABS: ADD MAN DIFF? NO
[2018-05-04 07:05] LABS: WHITE BLOOD COUNT 9.5 10^3/ul (4.8-10.8)
[2018-05-04 07:05] LABS: BASOPHIL # 0.1 10^3/ul (0.0-0.1); BASOPHILS % 0.8 % (0.0-2.0); EOSINOPHILS # 0.3 10^3/ul (0.0-0.5); EOSINOPHILS % 2.6 % (0.0-7.0); HEMOGLOBIN 10.5 g/dl (12.0-16.0); LYMPHOCYTES # 2.2 10^3/ul (0.8-2.9); LYMPHOCYTES % 23.3 % (15.0-51.0); MEAN CORPUSCULAR HEMOGLOBIN 27.1 pg (29.0-33.0); MEAN CORPUSCULAR HGB CONC 29.2 g/dl (32.0-37.0); MEAN CORPUSCULAR VOLUME 92.8 fl (82.0-101.0); MEAN PLATELET VOLUME 10.5 fl (7.4-10.4); MONOCYTE # 0.8 10^3/ul (0.3-0.9); MONOCYTES % 8.3 % (0.0-11.0); NEUTROPHILS % 63.6 % (39.0-77.0); PLATELET COUNT 241 10^3/UL (140-415); RED BLOOD COUNT 3.88 10^6/ul (4.20-5.40); RED CELL DISTRIBUTION WIDTH 13.2 % (11.5-14.5)
[2018-05-04 07:52] LABS: ANION GAP 14 (8-16); BLOOD UREA NITROGEN 29 mg/dl (7-20); CALCIUM 9.6 mg/dl (8.4-10.2); CARBON DIOXIDE 26 mmol/L (21-31); CHLORIDE 107 mmol/L (97-110); CREATININE 1.31 mg/dl (0.44-1.00); GLUCOSE 123 mg/dl (70-220); POTASSIUM 4.5 mmol/L (3.5-5.1); SODIUM 142 mmol/L (135-144)
[2018-05-04] MEDS: INSULIN ASPART [NOVOLOG] 3 ML PEN SC ×7 (08:00→20:45)
[2018-05-04] MEDS: ASPIRIN (EC) 81 MG TAB PO (08:42)
[2018-05-04] MEDS: TACROLIMUS 1 MG CAP PO ×2 (08:42→20:46)
[2018-05-04] MEDS: PANTOPRAZOLE (EC) 40 MG TAB PO ×2 (08:42→20:46)
[2018-05-04] MEDS: GABAPENTIN 300 MG CAP PO ×2 (08:42→20:46)
[2018-05-04] MEDS: DOCUSATE SODIUM 100 MG CAP PO (08:42)
[2018-05-04] MEDS: MYCOPHENOLATE (SR) 180 MG TAB PO ×2 (08:42→20:45)
[2018-05-04] MEDS: DOCUSATE SODIUM 250 MG CAP PO (08:42)
[2018-05-04] MEDS: SENNA TAB PO (08:42)
[2018-05-04] MEDS: predniSONE 5 MG TAB PO (08:42)
[2018-05-04] MEDS: LINAGLIPTIN 5 MG TABLET PO (08:42)
[2018-05-04] MEDS: LOSARTAN 50 MG TAB PO (08:44)
[2018-05-04] MEDS: MEROPENEM 1 GM/50ML(PMX) 50 ML IVPB ×2 (08:49→20:36)
[2018-05-04] MEDS: LIDOCAINE 1% (MPF) 5 ML VIAL SC (16:30)
[2018-05-04] MEDS: INSULIN GLARGINE [LANTus] (100 UNITS/ML) SYG SC (20:37)
[2018-05-04] MEDS: ATORVASTATIN 10 MG TAB PO (20:46)
[2018-05-05 06:22] LABS: ADD MAN DIFF? NO
[2018-05-05 06:34] LABS: BASOPHIL # 0.1 10^3/ul (0.0-0.1); BASOPHILS % 1.2 % (0.0-2.0); EOSINOPHILS # 0.4 10^3/ul (0.0-0.5); HEMOGLOBIN 10.5 g/dl (12.0-16.0); LYMPHOCYTES # 2.3 10^3/ul (0.8-2.9); LYMPHOCYTES % 24.5 % (15.0-51.0); MEAN CORPUSCULAR HEMOGLOBIN 27.3 pg (29.0-33.0); MEAN CORPUSCULAR VOLUME 91.1 fl (82.0-101.0); MEAN PLATELET VOLUME 10.7 fl (7.4-10.4); MONOCYTE # 0.7 10^3/ul (0.3-0.9); MONOCYTES % 7.6 % (0.0-11.0); NEUTROPHIL # 5.5 10^3/ul (1.6-7.5); NEUTROPHILS % 59.2 % (39.0-77.0); PLATELET COUNT 220 10^3/UL (140-415); RED BLOOD COUNT 3.84 10^6/ul (4.20-5.40); RED CELL DISTRIBUTION WIDTH 13.2 % (11.5-14.5)
[2018-05-05 06:34] LABS: WHITE BLOOD COUNT 9.4 10^3/ul (4.8-10.8)
[2018-05-05 07:03] LABS: ANION GAP 13 (8-16); BLOOD UREA NITROGEN 29 mg/dl (7-20); CALCIUM 9.7 mg/dl (8.4-10.2); CARBON DIOXIDE 28 mmol/L (21-31); CHLORIDE 104 mmol/L (97-110); CREATININE 1.26 mg/dl (0.44-1.00); GLUCOSE 223 mg/dl (70-220); POTASSIUM 4.6 mmol/L (3.5-5.1); SODIUM 140 mmol/L (135-144)
[2018-05-05] MEDS: INSULIN ASPART [NOVOLOG] 3 ML PEN SC ×7 (08:31→20:52)
[2018-05-05] MEDS: predniSONE 5 MG TAB PO (08:35)
[2018-05-05] MEDS: PANTOPRAZOLE (EC) 40 MG TAB PO ×2 (08:35→20:40)
[2018-05-05] MEDS: ASPIRIN (EC) 81 MG TAB PO (08:35)
[2018-05-05] MEDS: LINAGLIPTIN 5 MG TABLET PO (08:35)
[2018-05-05] MEDS: SENNA TAB PO (08:35)
[2018-05-05] MEDS: GABAPENTIN 300 MG CAP PO ×2 (08:35→20:41)
[2018-05-05] MEDS: LOSARTAN 50 MG TAB PO (08:36)
[2018-05-05] MEDS: DOCUSATE SODIUM 100 MG CAP PO (08:36)
[2018-05-05] MEDS: TACROLIMUS 1 MG CAP PO ×2 (08:36→20:41)
[2018-05-05] MEDS: MYCOPHENOLATE (SR) 180 MG TAB PO ×2 (08:37→20:41)
[2018-05-05] MEDS: MEROPENEM 1 GM/50ML(PMX) 50 ML IVPB ×2 (09:43→20:40)
[2018-05-05] MEDS: LIDOCAINE 1% (MPF) 5 ML VIAL SC (12:37)
[2018-05-05] MEDS: SOD CHLORIDE 0.9% 100 ML (12:50)
[2018-05-05] MEDS: ATORVASTATIN 10 MG TAB PO (20:41)
[2018-05-05] MEDS: INSULIN GLARGINE [LANTus] (100 UNITS/ML) SYG SC (20:52)
== END 2018-05-05 22:40 | disposition home health service (06) | DRG 872 ==
LOC: PP2 05-03 16:30 → E/R 02:58 → TEL 04:30
DX: A41.51 Sepsis due to Escherichia coli [E. coli] (principal); N10 Acute pyelonephritis; N17.9 Acute kidney failure, unspecified; Z68.41 Body mass index [BMI] 40.0-44.9, adult; Z94.0 Kidney transplant status; Z16.12 Extended spectrum beta lactamase (ESBL) resistance; E66.01 Morbid (severe) obesity due to excess calories; E11.9 Type 2 diabetes mellitus without complications; E78.00 Pure hypercholesterolemia, unspecified; I10 Essential (primary) hypertension; K21.9 Gastro-esophageal reflux disease without esophagitis; Z79.4 Long term (current) use of insulin; Z87.891 Personal history of nicotine dependence; Z79.82 Long term (current) use of aspirin; Z90.49 Acquired absence of other specified parts of digestive tract; D89.9 Disorder involving the immune mechanism, unspecified
CPT/HCPCS: 36415; 36569; 71045; 76937; 80048; 80053; 81001; 81003; 82962; 83605; 84484; 85025; 85610; 85730; 87040; 87086; 93005; 99285-25

== ENCOUNTER 2019-01-12 08:37 | Emergency (ER) | payer MEDICARE, OTHER ==
[2019-01-12] MEDS: DEXAMETHASONE 10 MG/ML 1 ML INJ IM (09:07)
[2019-01-12] MEDS: ALBUTEROL 0.083% (NEB) 2.5 MG/3 ML AMP HHN (09:16)
[2019-01-12] MEDS: IPRATROPIUM (NEB) 0.5 MG/2.5 ML AMP HHN (09:16)
== END 2019-01-12 10:53 | disposition home or self-care (01) ==
LOC: FTE 08:37
DX: R05 Cough (principal); I10 Essential (primary) hypertension; E11.9 Type 2 diabetes mellitus without complications; Z79.82 Long term (current) use of aspirin; Z79.4 Long term (current) use of insulin
CPT/HCPCS: 71045; 94664; 96372; 99284-25

== ENCOUNTER 2019-01-15 00:58 | Emergency (ER) | payer MEDICARE, OTHER ==
[2019-01-15] MEDS: IPRATROPIUM (NEB) 0.5 MG/2.5 ML AMP INH ×2 (01:51→03:12)
[2019-01-15] MEDS: ALBUTEROL 0.5% (NEB) 2.5 MG/0.5 ML AMP INH ×2 (01:51→03:12)
[2019-01-15 02:39] LABS: ADD MAN DIFF? NO
[2019-01-15] MEDS: KETOROLAC 15 MG INJ IV (02:39)
[2019-01-15] MEDS: SOD CHLORIDE 0.9% 500 ML IV (02:39)
[2019-01-15 02:42] LABS: WHITE BLOOD COUNT 12.3 10^3/ul (4.8-10.8)
[2019-01-15 02:43] LABS: BASOPHIL # 0.1 10^3/ul (0.0-0.1); BASOPHILS % 0.8 % (0.0-2.0); EOSINOPHILS # 0.4 10^3/ul (0.0-0.5); EOSINOPHILS % 3.4 % (0.0-7.0); HEMATOCRIT 36.9 % (37.0-47.0); HEMOGLOBIN 10.7 g/dl (12.0-16.0); LYMPHOCYTES # 2.3 10^3/ul (0.8-2.9); LYMPHOCYTES % 18.4 % (15.0-51.0); MEAN CORPUSCULAR VOLUME 93.2 fl (82.0-101.0); MEAN PLATELET VOLUME 10.8 fl (7.4-10.4); MONOCYTES % 8.3 % (0.0-11.0); NEUTROPHIL # 8.4 10^3/ul (1.6-7.5); PLATELET COUNT 215 10^3/UL (140-415); RED BLOOD COUNT 3.96 10^6/ul (4.20-5.40); RED CELL DISTRIBUTION WIDTH 13.6 % (11.5-14.5)
[2019-01-15 03:03] LABS: ANION GAP 7 (5-13); BLOOD UREA NITROGEN 35 mg/dl (7-20); CALCIUM 8.5 mg/dl (8.4-10.2); CARBON DIOXIDE 28 mmol/L (21-31); CHLORIDE 108 mmol/L (97-110); Estimated GFR 35 mL/min (>60); GLUCOSE 110 mg/dl (70-220); POTASSIUM 4.4 mmol/L (3.5-5.1); SODIUM 143 mmol/L (135-144)
[2019-01-15] MEDS: DEXAMETHASONE 10 MG/ML 1 ML INJ IV (03:15)
== END 2019-01-15 04:24 | disposition home or self-care (01) ==
LOC: E/R 00:58
DX: J20.9 Acute bronchitis, unspecified (principal); I10 Essential (primary) hypertension; E11.9 Type 2 diabetes mellitus without complications; Z79.4 Long term (current) use of insulin; Z79.82 Long term (current) use of aspirin
CPT/HCPCS: 36415; 71045; 80048; 85025; 93005; 94644; 94645; 96374; 96375; 99285-25

== ENCOUNTER 2019-02-23 11:52 | Inpatient (IN) | payer MEDICARE, OTHER ==
[2019-02-23 12:50] LABS: ADD MAN DIFF? NO
[2019-02-23] MEDS: ONDANSETRON 4 MG INJ IV (12:52)
[2019-02-23] MEDS: SOD CHLORIDE 0.9% 1,000 ML IV (12:52)
[2019-02-23 12:54] LABS: ABNORMAL IP MESSAGE 1; BASOPHIL # 0.1 10^3/ul (0.0-0.1); EOSINOPHILS # 0.1 10^3/ul (0.0-0.5); EOSINOPHILS % 0.9 % (0.0-7.0); HEMATOCRIT 36.9 % (37.0-47.0); HEMOGLOBIN 10.6 g/dl (12.0-16.0); LYMPHOCYTES # 1.9 10^3/ul (0.8-2.9); MEAN CORPUSCULAR HEMOGLOBIN 26.8 pg (29.0-33.0); MEAN CORPUSCULAR HGB CONC 28.7 g/dl (32.0-37.0); MEAN CORPUSCULAR VOLUME 93.2 fl (82.0-101.0); MEAN PLATELET VOLUME 10.4 fl (7.4-10.4); MONOCYTE # 0.8 10^3/ul (0.3-0.9); MONOCYTES % 8.7 % (0.0-11.0); NEUTROPHIL # 6.1 10^3/ul (1.6-7.5); NEUTROPHILS % 67.6 % (39.0-77.0); PLATELET COUNT 206 10^3/UL (140-415); RED BLOOD COUNT 3.96 10^6/ul (4.20-5.40); RED CELL DISTRIBUTION WIDTH 14.1 % (11.5-14.5)
[2019-02-23 12:54] LABS: WHITE BLOOD COUNT 9.1 10^3/ul (4.8-10.8)
[2019-02-23 13:01] LABS: POSITIVE DIFF @See below
[2019-02-23 13:03] LABS: ADD UMIC YES; UR ASCORBIC ACID NEGATIVE (NEGATIVE); UR BACTERIA FEW /HPF (NONE SEEN); UR BILIRUBIN (Dip) NEGATIVE (NEGATIVE); UR BLOOD (Dip) 1+ mg/dL (NEGATIVE); UR CLARITY CLOUDY (CLEAR); UR COLOR YELLOW (YELLOW); UR GLUCOSE (Dip) NEGATIVE (NEGATIVE); UR KETONES (Dip) NEGATIVE (NEGATIVE); UR LEUKOCYTE ESTERASE (Dip) 3+ Leu/ul (NEGATIVE); UR NITRITE (Dip) NEGATIVE (NEGATIVE); UR RBC 12 /HPF (0-5); UR SQUAMOUS EPITHELIAL CELL FEW /HPF (FEW); UR TOTAL PROTEIN (Dip) 2+ mg/dl (NEGATIVE); UR UROBILINOGEN (Dip) NEGATIVE (NEGATIVE); UR WBC > 182 /HPF (0-5)
[2019-02-23 13:11] LABS: ALANINE AMINOTRANSFERASE 18 IU/L (13-69); ALBUMIN 3.6 g/dl (3.3-4.9); ALBUMIN/GLOBULIN RATIO 1.16; ALKALINE PHOSPHATASE 113 IU/L (42-121); ANION GAP 5 (5-13); ASPARTATE AMINO TRANSFERASE 19 IU/L (15-46); BILIRUBIN,INDIRECT 1.2 mg/dl (0-1.1); BILIRUBIN,TOTAL 1.2 mg/dl (0.2-1.3); BLOOD UREA NITROGEN 18 mg/dl (7-20); CALCIUM 9.3 mg/dl (8.4-10.2); CARBON DIOXIDE 30 mmol/L (21-31); CHLORIDE 106 mmol/L (97-110); CREATININE 1.21 mg/dl (0.44-1.00); Estimated GFR 45 mL/min (>60); GLUCOSE 241 mg/dl (70-220); LIPASE 66 U/L (23-300); POTASSIUM 4.6 mmol/L (3.5-5.1); SODIUM 141 mmol/L (135-144); TOTAL PROTEIN 6.7 g/dl (6.1-8.1)
[2019-02-23 13:23] LABS: TROPONIN-I < 0.012 ng/ml (0.000-0.120)
[2019-02-23] MEDS: CEFTRIAXONE 1 GM/50 ML (PMX) 50 ML IVPB (13:55)
[2019-02-23] MEDS ORDERED: ACETAMINOPHEN 325 MG TAB PO ×2 (16:00→17:30)
[2019-02-23] MEDS ORDERED: ONDANSETRON 4 MG INJ IV ×2 (16:00→17:30)
[2019-02-23] MEDS ORDERED: HYDROCODONE/APAP (5/325) TAB PO (17:30)
[2019-02-23] MEDS ORDERED: DOCUSATE SODIUM 100 MG CAP PO (17:30)
[2019-02-23] MEDS ORDERED: ZOLPIDEM 5 MG TAB PO (17:30)
[2019-02-23] MEDS: INSULIN ASPART [NOVOLOG] 3 ML PEN SC ×3 (18:59→21:44)
[2019-02-23] MEDS ORDERED: NON-FORMULARY/PATIENT OWN MED (Simvastatin* (Zocor*) 20 MG) PO (20:20)
[2019-02-23] MEDS ORDERED: NON-FORMULARY/PATIENT OWN MED (Valsartan* (Diovan*) 80 MG) PO (20:20)
[2019-02-23] MEDS: TACROLIMUS 1 MG CAP PO ×2 (21:00→23:27)
[2019-02-23] MEDS: MEROPENEM 1 GM/50ML(PMX) 50 ML IVPB (21:19)
[2019-02-23] MEDS: GABAPENTIN 100 MG CAP PO (21:23)
[2019-02-23] MEDS: INSULIN GLARGINE [LANTus] (100 UNITS/ML) SYG SC (21:35)
[2019-02-23] MEDS: ATORVASTATIN 10 MG TAB PO (23:27)
[2019-02-23] MEDS: APIXABAN 5 MG TABLET PO (23:28)
[2019-02-23] MEDS: MYCOPHENOLATE (SR) 180 MG TAB PO (23:31)
[2019-02-24] MEDS: ACCU-CHEK XX (02:00)
[2019-02-24 05:28] LABS: ADD MAN DIFF? NO
[2019-02-24 05:31] LABS: BASOPHIL # 0.1 10^3/ul (0.0-0.1); EOSINOPHILS # 0.1 10^3/ul (0.0-0.5); EOSINOPHILS % 1.4 % (0.0-7.0); HEMATOCRIT 32.5 % (37.0-47.0); HEMOGLOBIN 9.7 g/dl (12.0-16.0); LYMPHOCYTES # 2.1 10^3/ul (0.8-2.9); LYMPHOCYTES % 28.9 % (15.0-51.0); MEAN CORPUSCULAR HEMOGLOBIN 27.3 pg (29.0-33.0); MEAN CORPUSCULAR HGB CONC 29.8 g/dl (32.0-37.0); MEAN CORPUSCULAR VOLUME 91.5 fl (82.0-101.0); MEAN PLATELET VOLUME 10.9 fl (7.4-10.4); MONOCYTE # 0.6 10^3/ul (0.3-0.9); MONOCYTES % 8.3 % (0.0-11.0); NEUTROPHIL # 4.3 10^3/ul (1.6-7.5); PLATELET COUNT 188 10^3/UL (140-415); RED BLOOD COUNT 3.55 10^6/ul (4.20-5.40); RED CELL DISTRIBUTION WIDTH 14.1 % (11.5-14.5)
[2019-02-24 05:31] LABS: WHITE BLOOD COUNT 7.2 10^3/ul (4.8-10.8)
[2019-02-24 06:25] LABS: ANION GAP 4 (5-13); BLOOD UREA NITROGEN 18 mg/dl (7-20); CALCIUM 9.2 mg/dl (8.4-10.2); CARBON DIOXIDE 29 mmol/L (21-31); CHLORIDE 106 mmol/L (97-110); CREATININE 1.12 mg/dl (0.44-1.00); Estimated GFR 49 mL/min (>60); GLUCOSE 202 mg/dl (70-220); POTASSIUM 4.6 mmol/L (3.5-5.1); SODIUM 139 mmol/L (135-144)
[2019-02-24] MEDS: PANTOPRAZOLE (EC) 40 MG TAB PO (06:36)
[2019-02-24] MEDS: INSULIN ASPART [NOVOLOG] 3 ML PEN SC ×8 (08:21→21:00)
[2019-02-24] MEDS: MEROPENEM 1 GM/50ML(PMX) 50 ML IVPB ×2 (08:46→21:24)
[2019-02-24] MEDS: ALLOPURINOL 100 MG TAB PO (08:47)
[2019-02-24] MEDS: FUROSEMIDE 40 MG TAB PO (08:48)
[2019-02-24] MEDS: TACROLIMUS 1 MG CAP PO ×2 (08:49→21:25)
[2019-02-24] MEDS: predniSONE 2.5 MG TAB PO (08:49)
[2019-02-24] MEDS: APIXABAN 5 MG TABLET PO ×2 (08:49→21:26)
[2019-02-24] MEDS: MYCOPHENOLATE (SR) 180 MG TAB PO ×2 (08:59→21:25)
[2019-02-24] MEDS: GABAPENTIN 100 MG CAP PO (21:25)
[2019-02-24] MEDS: ATORVASTATIN 10 MG TAB PO (21:26)
[2019-02-24] MEDS: LOSARTAN 50 MG TAB PO (21:27)
[2019-02-24] MEDS: INSULIN GLARGINE [LANTus] (100 UNITS/ML) SYG SC (21:35)
[2019-02-25] MEDS: INSULIN ASPART [NOVOLOG] 3 ML PEN SC ×8 (02:04→20:30)
[2019-02-25] MEDS: ACCU-CHEK XX (03:20)
[2019-02-25 05:49] LABS: ADD MAN DIFF? NO
[2019-02-25 05:58] LABS: WHITE BLOOD COUNT 7.6 10^3/ul (4.8-10.8)
[2019-02-25 05:58] LABS: BASOPHIL # 0.1 10^3/ul (0.0-0.1); BASOPHILS % 0.7 % (0.0-2.0); EOSINOPHILS # 0.1 10^3/ul (0.0-0.5); EOSINOPHILS % 1.6 % (0.0-7.0); HEMOGLOBIN 10.3 g/dl (12.0-16.0); LYMPHOCYTES % 26.7 % (15.0-51.0); MEAN CORPUSCULAR HEMOGLOBIN 26.8 pg (29.0-33.0); MEAN CORPUSCULAR HGB CONC 29.4 g/dl (32.0-37.0); MEAN CORPUSCULAR VOLUME 91.1 fl (82.0-101.0); MEAN PLATELET VOLUME 11.2 fl (7.4-10.4); MONOCYTE # 0.5 10^3/ul (0.3-0.9); MONOCYTES % 7.1 % (0.0-11.0); NEUTROPHIL # 4.8 10^3/ul (1.6-7.5); NEUTROPHILS % 63.1 % (39.0-77.0); PLATELET COUNT 190 10^3/UL (140-415); RED BLOOD COUNT 3.84 10^6/ul (4.20-5.40)
[2019-02-25] MEDS: PANTOPRAZOLE (EC) 40 MG TAB PO (06:18)
[2019-02-25 06:20] LABS: ANION GAP 8 (5-13); BLOOD UREA NITROGEN 24 mg/dl (7-20); CALCIUM 9.3 mg/dl (8.4-10.2); CARBON DIOXIDE 28 mmol/L (21-31); CHLORIDE 104 mmol/L (97-110); CREATININE 1.22 mg/dl (0.44-1.00); Estimated GFR 45 mL/min (>60); GLUCOSE 253 mg/dl (70-220); POTASSIUM 4.5 mmol/L (3.5-5.1); SODIUM 140 mmol/L (135-144)
[2019-02-25] MEDS: ALLOPURINOL 100 MG TAB PO (08:02)
[2019-02-25] MEDS: APIXABAN 5 MG TABLET PO ×2 (08:03→20:14)
[2019-02-25] MEDS: TACROLIMUS 1 MG CAP PO ×2 (08:03→20:14)
[2019-02-25] MEDS: predniSONE 2.5 MG TAB PO (08:03)
[2019-02-25] MEDS: MYCOPHENOLATE (SR) 180 MG TAB PO ×2 (08:03→20:13)
[2019-02-25] MEDS: FUROSEMIDE 40 MG TAB PO (08:04)
[2019-02-25] MEDS: MEROPENEM 1 GM/50ML(PMX) 50 ML IVPB (08:04)
[2019-02-25] MEDS: CEFTRIAXONE 1 GM/50 ML (PMX) 50 ML IVPB (12:23)
[2019-02-25] MEDS: SOD CHLORIDE 0.45% 1,000 ML IV (20:09)
[2019-02-25] MEDS: ATORVASTATIN 10 MG TAB PO (20:10)
[2019-02-25] MEDS: GABAPENTIN 100 MG CAP PO (20:14)
[2019-02-25] MEDS: LOSARTAN 50 MG TAB PO (20:14)
[2019-02-25] MEDS: INSULIN GLARGINE [LANTus] (100 UNITS/ML) SYG SC (20:30)
[2019-02-26] MEDS: ACCU-CHEK XX (02:00)
[2019-02-26] MEDS: PANTOPRAZOLE (EC) 40 MG TAB PO (06:04)
[2019-02-26 06:28] LABS: ANION GAP 7 (5-13); BLOOD UREA NITROGEN 31 mg/dl (7-20); CALCIUM 9.2 mg/dl (8.4-10.2); CARBON DIOXIDE 28 mmol/L (21-31); CHLORIDE 102 mmol/L (97-110); Estimated GFR 46 mL/min (>60); GLUCOSE 211 mg/dl (70-220); POTASSIUM 4.4 mmol/L (3.5-5.1); SODIUM 137 mmol/L (135-144)
[2019-02-26] MEDS: ALLOPURINOL 100 MG TAB PO (08:29)
[2019-02-26] MEDS: MYCOPHENOLATE (SR) 180 MG TAB PO ×2 (08:29→20:34)
[2019-02-26] MEDS: predniSONE 2.5 MG TAB PO (08:29)
[2019-02-26] MEDS: APIXABAN 5 MG TABLET PO ×2 (08:29→20:33)
[2019-02-26] MEDS: TACROLIMUS 1 MG CAP PO ×2 (08:29→20:33)
[2019-02-26] MEDS: FUROSEMIDE 40 MG TAB PO (08:30)
[2019-02-26] MEDS: INSULIN ASPART [NOVOLOG] 3 ML PEN SC ×7 (08:33→20:34)
[2019-02-26] MEDS: SOD CHLORIDE 0.45% 1,000 ML IV ×2 (11:40→15:47)
[2019-02-26] MEDS: CEFTRIAXONE 1 GM/50 ML (PMX) 50 ML IVPB (12:43)
[2019-02-26] MEDS: INSULIN GLARGINE [LANTus] (100 UNITS/ML) SYG SC (20:31)
[2019-02-26] MEDS: GABAPENTIN 100 MG CAP PO (20:33)
[2019-02-26] MEDS: ATORVASTATIN 10 MG TAB PO (20:33)
[2019-02-26] MEDS: LOSARTAN 50 MG TAB PO (20:34)
[2019-02-27] MEDS: ACCU-CHEK XX (02:00)
[2019-02-27] MEDS: PANTOPRAZOLE (EC) 40 MG TAB PO (06:20)
[2019-02-27] MEDS: SOD CHLORIDE 0.45% 1,000 ML IV ×2 (06:20→20:58)
[2019-02-27] MEDS: APIXABAN 5 MG TABLET PO ×2 (08:23→20:40)
[2019-02-27] MEDS: predniSONE 2.5 MG TAB PO (08:23)
[2019-02-27] MEDS: MYCOPHENOLATE (SR) 180 MG TAB PO ×2 (08:23→20:41)
[2019-02-27] MEDS: BISACODYL (EC) 5 MG TAB PO (08:23)
[2019-02-27] MEDS: TACROLIMUS 1 MG CAP PO ×2 (08:24→20:38)
[2019-02-27] MEDS: ALLOPURINOL 100 MG TAB PO (08:25)
[2019-02-27] MEDS: FUROSEMIDE 40 MG TAB PO (08:25)
[2019-02-27] MEDS: INSULIN ASPART [NOVOLOG] 3 ML PEN SC ×7 (08:26→20:43)
[2019-02-27] MEDS: CEFTRIAXONE 1 GM/50 ML (PMX) 50 ML IVPB (12:05)
[2019-02-27] MEDS: CEPHALEXIN 250 MG CAP PO ×2 (14:59→21:47)
[2019-02-27] MEDS: GABAPENTIN 100 MG CAP PO (20:40)
[2019-02-27] MEDS: ATORVASTATIN 10 MG TAB PO (20:41)
[2019-02-27] MEDS: LOSARTAN 50 MG TAB PO (20:41)
[2019-02-27] MEDS: INSULIN GLARGINE [LANTus] (100 UNITS/ML) SYG SC (20:52)
[2019-02-28] MEDS: ACCU-CHEK XX (01:49)
[2019-02-28 05:45] LABS: ADD MAN DIFF? NO
[2019-02-28 05:50] LABS: WHITE BLOOD COUNT 7.7 10^3/ul (4.8-10.8)
[2019-02-28 05:50] LABS: BASOPHIL # 0.1 10^3/ul (0.0-0.1); BASOPHILS % 0.9 % (0.0-2.0); EOSINOPHILS # 0.2 10^3/ul (0.0-0.5); EOSINOPHILS % 2.7 % (0.0-7.0); HEMATOCRIT 36.5 % (37.0-47.0); HEMOGLOBIN 10.7 g/dl (12.0-16.0); LYMPHOCYTES # 2.2 10^3/ul (0.8-2.9); LYMPHOCYTES % 28.4 % (15.0-51.0); MEAN CORPUSCULAR HEMOGLOBIN 26.9 pg (29.0-33.0); MEAN CORPUSCULAR HGB CONC 29.3 g/dl (32.0-37.0); MEAN CORPUSCULAR VOLUME 91.7 fl (82.0-101.0); MEAN PLATELET VOLUME 11.3 fl (7.4-10.4); MONOCYTE # 0.5 10^3/ul (0.3-0.9); NEUTROPHIL # 4.7 10^3/ul (1.6-7.5); NEUTROPHILS % 61.2 % (39.0-77.0); PLATELET COUNT 208 10^3/UL (140-415); RED BLOOD COUNT 3.98 10^6/ul (4.20-5.40); RED CELL DISTRIBUTION WIDTH 13.9 % (11.5-14.5)
[2019-02-28 06:05] LABS: ANION GAP 6 (5-13); BLOOD UREA NITROGEN 34 mg/dl (7-20); CALCIUM 9.5 mg/dl (8.4-10.2); CARBON DIOXIDE 29 mmol/L (21-31); CHLORIDE 105 mmol/L (97-110); CREATININE 1.07 mg/dl (0.44-1.00); Estimated GFR 52 mL/min (>60); GLUCOSE 230 mg/dl (70-220); POTASSIUM 4.4 mmol/L (3.5-5.1); SODIUM 140 mmol/L (135-144)
[2019-02-28] MEDS: PANTOPRAZOLE (EC) 40 MG TAB PO (06:11)
[2019-02-28] MEDS: CEPHALEXIN 250 MG CAP PO ×3 (06:11→22:08)
[2019-02-28] MEDS: TACROLIMUS 1 MG CAP PO ×2 (08:40→20:35)
[2019-02-28] MEDS: MYCOPHENOLATE (SR) 180 MG TAB PO ×2 (08:40→20:35)
[2019-02-28] MEDS: APIXABAN 5 MG TABLET PO ×2 (08:40→20:37)
[2019-02-28] MEDS: ALLOPURINOL 100 MG TAB PO (08:40)
[2019-02-28] MEDS: FUROSEMIDE 40 MG TAB PO (08:41)
[2019-02-28] MEDS: BISACODYL (EC) 5 MG TAB PO (08:41)
[2019-02-28] MEDS: INSULIN ASPART [NOVOLOG] 3 ML PEN SC ×7 (08:43→20:39)
[2019-02-28] MEDS: predniSONE 2.5 MG TAB PO (12:38)
[2019-02-28] MEDS: ATORVASTATIN 10 MG TAB PO (20:37)
[2019-02-28] MEDS: LOSARTAN 50 MG TAB PO (20:37)
[2019-02-28] MEDS: GABAPENTIN 100 MG CAP PO (20:37)
[2019-02-28] MEDS: INSULIN GLARGINE [LANTus] (100 UNITS/ML) SYG SC (20:38)
[2019-03-01] MEDS: ACCU-CHEK XX (01:54)
[2019-03-01] MEDS: PANTOPRAZOLE (EC) 40 MG TAB PO (05:52)
[2019-03-01] MEDS: CEPHALEXIN 250 MG CAP PO ×3 (05:52→22:22)
[2019-03-01] MEDS: INSULIN ASPART [NOVOLOG] 3 ML PEN SC ×7 (08:21→21:00)
[2019-03-01] MEDS: APIXABAN 5 MG TABLET PO ×2 (08:31→21:06)
[2019-03-01] MEDS: ALLOPURINOL 100 MG TAB PO (08:32)
[2019-03-01] MEDS: TACROLIMUS 1 MG CAP PO ×2 (08:32→21:06)
[2019-03-01] MEDS: BISACODYL (EC) 5 MG TAB PO (08:32)
[2019-03-01] MEDS: FUROSEMIDE 40 MG TAB PO (08:33)
[2019-03-01] MEDS: MYCOPHENOLATE (SR) 180 MG TAB PO ×2 (08:33→21:06)
[2019-03-01] MEDS: predniSONE 2.5 MG TAB PO (08:33)
[2019-03-01] MEDS: GABAPENTIN 100 MG CAP PO (21:06)
[2019-03-01] MEDS: LOSARTAN 50 MG TAB PO (21:08)
[2019-03-01] MEDS: ATORVASTATIN 10 MG TAB PO (21:08)
[2019-03-01] MEDS: INSULIN GLARGINE [LANTus] (100 UNITS/ML) SYG SC (21:12)
[2019-03-02] MEDS: ACCU-CHEK XX (02:00)
[2019-03-02] MEDS: PANTOPRAZOLE (EC) 40 MG TAB PO (06:03)
[2019-03-02] MEDS: CEPHALEXIN 250 MG CAP PO (06:03)
[2019-03-02] MEDS: MYCOPHENOLATE (SR) 180 MG TAB PO (08:06)
[2019-03-02] MEDS: BISACODYL (EC) 5 MG TAB PO (08:07)
[2019-03-02] MEDS: ALLOPURINOL 100 MG TAB PO (08:07)
[2019-03-02] MEDS: APIXABAN 5 MG TABLET PO (08:07)
[2019-03-02] MEDS: TACROLIMUS 1 MG CAP PO (08:07)
[2019-03-02] MEDS: predniSONE 2.5 MG TAB PO (08:07)
[2019-03-02] MEDS: FUROSEMIDE 40 MG TAB PO (08:08)
[2019-03-02] MEDS: INSULIN ASPART [NOVOLOG] 3 ML PEN SC ×4 (08:09→12:34)
== END 2019-03-02 17:00 | disposition home or self-care (01) | DRG 699 ==
LOC: E/R 11:52 → 2NE 17:50
DX: T86.19 Other complication of kidney transplant (principal); N17.9 Acute kidney failure, unspecified; N39.0 Urinary tract infection, site not specified; I11.0 Hypertensive heart disease with heart failure; E66.9 Obesity, unspecified; Z68.39 Body mass index [BMI] 39.0-39.9, adult; E11.9 Type 2 diabetes mellitus without complications; Z79.899 Other long term (current) drug therapy; R11.2 Nausea with vomiting, unspecified; B96.20 Unspecified Escherichia coli [E. coli] as the cause of diseases classified elsewhere
CPT/HCPCS: 36415; 71045; 74176; 80048; 80053; 81001; 82962; 83690; 84484; 85025; 87040-91; 87086; 93005; 96361; 96374; 96375; 99285-25